=== PATIENT | male | born 1940 | race Caucasian/White ===

== ENCOUNTER 2019-04-15 10:47 | Emergency (ER) | payer MEDICARE ==
[~2019-04-15] VITALS: Ht 180.3 cm; Wt 87.1 kg
[2019-04-15 11:46] LABS: BASOPHILS ABSOLUTE AUTO 0.05 K/mm3 (0.00-0.23); BASOPHILS PERCENT AUTO 1 % (0-2); EOSINOPHILS PERCENT AUTO 2 % (0-6); Hematocrit 39.9 % (37.0-53.0); Hemoglobin 12.5 g/dL (13.5-17.5); IMMATURE GRAN ABSOLUTE AUTO 0.01 K/mm3 (0.00-0.10); IMMATURE GRAN PERCENT AUTO 0 % (0-1); LYMPHOCYTES ABSOLUTE AUTO 0.89 K/mm3 (0.84-5.20); LYMPHOCYTES PERCENT AUTO 15 % (21-46); MONOCYTES ABSOLUTE AUTO 0.74 K/mm3 (0.16-1.47); MONOCYTES PERCENT AUTO 12 % (4-13); Mean Corpuscular HGB 29.6 pg (26.0-34.0); Mean Corpuscular HGB Conc 31.3 g/dL (31.5-36.5); Mean Corpuscular Volume 95 fL (80-100); Mean Platelet Volume 8.9 fL (9.1-12.4); NEUTROPHILS ABSOLUTE AUTO 4.34 K/mm3 (1.96-9.15); NEUTROPHILS PERCENT AUTO 71 % (41-73); Platelet Count 281 K/mm3 (150-400); RDW Coefficient Variation 14.2 % (11.7-14.2); RDW Standard Deviation 48.9 fL (35.1-46.3); Red Blood Cell Count 4.22 M/mm3 (4.30-5.90); White Blood Cell Count 6.13 K/mm3 (4.00-11.30)
[2019-04-15 12:03] LABS: Alanine Aminotransfer (ALT/SGP 14 U/L (12-78); Albumin, Blood 3.2 g/dL (3.4-5.0); Albumin/Globulin Ratio 0.8 (0.8-1.8); Alk Phos 92 U/L (50-136); Anion Gap 7 mmol/L (6-16); Aspartate Aminotrans (AST/SGOT 15 U/L (12-37); Bilirubin, Total 0.4 mg/dL (0.1-1.0); Blood Urea Nitrogen 22 mg/dL (8-24); Bun/Creatinine Ratio 21.2 (12.0-20.0); CO2, Blood 24 mmol/L (21-32); Calcium, Blood 8.8 mg/dL (8.5-10.1); Chloride, Blood 108 mmol/L (98-108); Creatinine, Blood 1.04 mg/dL (0.60-1.20); Glomerular Filtration Rate >60 (60-); Glucose, Blood 111 mg/dL (70-99); Potassium, Blood 3.9 mmol/L (3.5-5.5); Sodium, Blood 139 mmol/L (136-145); Total Protein, Blood 7.2 g/dL (6.4-8.2); Troponin I 0.018 ng/mL (0.000-0.040)
[2019-04-15] MEDS ORDERED: TIOT18 INH (12:45)
[2019-04-15] MEDS ORDERED: Aspir 8181 MG PO (12:45)
[2019-04-15] MEDS ORDERED: Pravachol40 MG PO (12:46)
[2019-04-15] MEDS ORDERED: OMEPRAZOLE MAGN20 MG PO (12:46)
[2019-04-15] MEDS ORDERED: METO25 PO (12:46)
[2019-04-15] MEDS ORDERED: AZIT250 PO (13:07)
[2019-04-15] MEDS ORDERED: Prednisone20 MG PO (13:07)
== END 2019-04-15 13:55 | disposition home or self-care (01) ==
LOC: ER 10:47
PROVIDERS: Emergency Medicine
DX: J40 Bronchitis, not specified as acute or chronic (principal); Z79.899 Other long term (current) drug therapy; Z79.82 Long term (current) use of aspirin; I48.91 Unspecified atrial fibrillation; I25.2 Old myocardial infarction; Z86.73 Personal history of transient ischemic attack (TIA), and cerebral infarction without residual deficits
CPT/HCPCS: 71046; 80053; 83880; 84484; 85025; 93005; 93010

== ENCOUNTER 2019-07-15 14:28 | Emergency (ER) | payer MEDICARE ==
[~2019-07-15] VITALS: Ht 177.8 cm; Wt 80.7 kg
[~2019-07-15 14:28] MED LIST changes: -CEFP200 PO
[2019-07-15 15:12] LABS: BASOPHILS ABSOLUTE AUTO 0.04 K/mm3 (0.00-0.23); BASOPHILS PERCENT AUTO 0 % (0-2); EOSINOPHILS PERCENT AUTO 1 % (0-6); Hematocrit 36.9 % (37.0-53.0); Hemoglobin 11.4 g/dL (13.5-17.5); IMMATURE GRAN ABSOLUTE AUTO 0.04 K/mm3 (0.00-0.10); IMMATURE GRAN PERCENT AUTO 0 % (0-1); LYMPHOCYTES ABSOLUTE AUTO 0.79 K/mm3 (0.84-5.20); LYMPHOCYTES PERCENT AUTO 7 % (21-46); MONOCYTES PERCENT AUTO 8 % (4-13); Mean Corpuscular HGB 27.7 pg (26.0-34.0); Mean Corpuscular HGB Conc 30.9 g/dL (31.5-36.5); Mean Corpuscular Volume 90 fL (80-100); Mean Platelet Volume 8.6 fL (9.1-12.4); NEUTROPHILS ABSOLUTE AUTO 10.15 K/mm3 (1.96-9.15); NEUTROPHILS PERCENT AUTO 85 % (41-73); Platelet Count 360 K/mm3 (150-400); RDW Coefficient Variation 15.4 % (11.7-14.2); Red Blood Cell Count 4.11 M/mm3 (4.30-5.90); White Blood Cell Count 12.02 K/mm3 (4.00-11.30)
[2019-07-15 15:28] LABS: Alanine Aminotransfer (ALT/SGP 15 U/L (12-78); Albumin, Blood 3.2 g/dL (3.4-5.0); Albumin/Globulin Ratio 0.7 (0.8-1.8); Alk Phos 124 U/L (50-136); Anion Gap 8 mmol/L (6-16); Aspartate Aminotrans (AST/SGOT 13 U/L (12-37); Bilirubin, Total 0.6 mg/dL (0.1-1.0); Blood Urea Nitrogen 25 mg/dL (8-24); Bun/Creatinine Ratio 20.7 (12.0-20.0); CO2, Blood 23 mmol/L (21-32); Calcium, Blood 9.4 mg/dL (8.5-10.1); Chloride, Blood 110 mmol/L (98-108); Creatinine, Blood 1.21 mg/dL (0.60-1.20); Globulin, Blood 4.6 g/dL (2.2-4.0); Glomerular Filtration Rate >60 (60-); Glucose, Blood 117 mg/dL (70-99); Sodium, Blood 141 mmol/L (136-145); Total Protein, Blood 7.8 g/dL (6.4-8.2)
[2019-07-15 17:49] LABS: Source, Urine Clean Catch
[2019-07-15 17:56] LABS: Bilirubin, Urine Neg (Neg); Blood, Urine 5+ (Neg); Glucose Qualitative, Urine Neg (Neg); Ketones, Urine Neg (Neg); Leukocyte Esterase, Urine 2+ (Neg); Nitrite, Urine Neg (Neg); Protein, Urine 2+ (Neg); Specific Gravity, Urine 1.015 (1.003-1.022); Urobilinogen, Urine NORM (Normal)
[2019-07-15 18:04] LABS: Appearance, Urine Clear (Clear); Color, Urine Yellow (P-Yellow)
[2019-07-15 18:15] LABS: Bacteria Few /hpf; Squamous Epithelial Cells Not Seen /hpf (Few)
[2019-07-15] MEDS ORDERED: CEFP200 PO (18:33)
== END 2019-07-15 19:01 | disposition home or self-care (01) ==
LOC: ER 14:28
PROVIDERS: Physician Assistant
DX: N39.0 Urinary tract infection, site not specified (principal); R33.9 Retention of urine, unspecified; I48.91 Unspecified atrial fibrillation; I25.2 Old myocardial infarction; J44.9 Chronic obstructive pulmonary disease, unspecified; Z86.73 Personal history of transient ischemic attack (TIA), and cerebral infarction without residual deficits; Z79.82 Long term (current) use of aspirin; Z79.2 Long term (current) use of antibiotics; Z79.899 Other long term (current) drug therapy
CPT/HCPCS: 36415; 51702; 51798; 80053; 81001; 83690; 85025; 87086; 93005; 93010; 99284-25; A9270-GY

== ENCOUNTER → 2019-07-15 | Outpatient (CLI) | payer MEDICARE ==
[~2019-07-15] MED LIST: AZIT250 PO; Aspir 8181 MG PO; CEFP200 PO; METO25 PO; OMEPRAZOLE MAGN20 MG PO; Pravachol40 MG PO; Prednisone20 MG PO; TIOT18 INH
== END | disposition home or self-care (01) ==
LOC: LAB SHORT 15:06 → LAB SRC 15:06
PROVIDERS: Family Medicine
DX: N13.9 Obstructive and reflux uropathy, unspecified (principal)
CPT/HCPCS: 84153

== ENCOUNTER 2020-03-09 07:56 | Emergency (ER) | payer MEDICARE ==
[~2020-03-09] VITALS: Ht 177.8 cm; Wt 71.2 kg
[~2020-03-09 07:56] MED LIST changes: +CEFP200 PO
[2020-03-09 08:36] LABS: BASOPHILS ABSOLUTE AUTO 0.07 K/mm3 (0.00-0.23); BASOPHILS PERCENT AUTO 1 % (0-2); EOSINOPHILS PERCENT AUTO 0 % (0-6); Hematocrit 35.4 % (37.0-53.0); Hemoglobin 10.6 g/dL (13.5-17.5); IMMATURE GRAN ABSOLUTE AUTO 0.24 K/mm3 (0.00-0.10); IMMATURE GRAN PERCENT AUTO 2 % (0-1); LYMPHOCYTES ABSOLUTE AUTO 1.22 K/mm3 (0.84-5.20); LYMPHOCYTES PERCENT AUTO 9 % (21-46); MONOCYTES ABSOLUTE AUTO 0.53 K/mm3 (0.16-1.47); MONOCYTES PERCENT AUTO 4 % (4-13); Mean Corpuscular HGB 27.7 pg (26.0-34.0); Mean Corpuscular HGB Conc 29.9 g/dL (31.5-36.5); Mean Corpuscular Volume 92 fL (80-100); Mean Platelet Volume 9.6 fL (9.1-12.4); NEUTROPHILS ABSOLUTE AUTO 12.08 K/mm3 (1.96-9.15); NEUTROPHILS PERCENT AUTO 86 % (41-73); NRBC ABSOLUTE 0.02 K/mm3 (0.00-0.02); NRBC Auto 0.1 /100 WBC (0.0-0.2); Platelet Count 124 K/mm3 (150-400); RDW Coefficient Variation 26.3 % (11.7-14.2); RDW Standard Deviation 82.2 fL (35.1-46.3); Red Blood Cell Count 3.83 M/mm3 (4.30-5.90); White Blood Cell Count 14.14 K/mm3 (4.00-11.30)
[2020-03-09 08:53] LABS: Alanine Aminotransfer (ALT/SGP 108 U/L (12-78); Albumin, Blood 2.8 g/dL (3.4-5.0); Albumin/Globulin Ratio 0.9 (0.8-1.8); Alk Phos 204 U/L (50-136); Anion Gap 5 mmol/L (6-16); Aspartate Aminotrans (AST/SGOT 46 U/L (12-37); Bilirubin, Total 0.4 mg/dL (0.1-1.0); Blood Urea Nitrogen 31 mg/dL (8-24); Bun/Creatinine Ratio 43.1 (12.0-20.0); CO2, Blood 27 mmol/L (21-32); Calcium, Blood 8.5 mg/dL (8.5-10.1); Chloride, Blood 111 mmol/L (98-108); Creatinine, Blood 0.72 mg/dL (0.60-1.20); Globulin, Blood 3.1 g/dL (2.2-4.0); Glomerular Filtration Rate >60 (60-); Glucose, Blood 93 mg/dL (70-99); Potassium, Blood 4.4 mmol/L (3.5-5.5); Sodium, Blood 143 mmol/L (136-145); Total Protein, Blood 5.9 g/dL (6.4-8.2); Troponin I 0.021 ng/mL (0.000-0.040)
[2020-03-09] MEDS ORDERED: OXYB5 PO (10:12)
[2020-03-09] MEDS ORDERED: PRED20 PO (10:12)
[2020-03-09] MEDS ORDERED: TORSE20 PO (10:13)
[2020-03-09] MEDS ORDERED: POTA10T PO (10:13)
== END 2020-03-09 12:14 | disposition home or self-care (01) ==
LOC: ER 07:56
PROVIDERS: Physician Assistant
DX: R07.9 Chest pain, unspecified (principal); I48.91 Unspecified atrial fibrillation; I25.2 Old myocardial infarction; J44.9 Chronic obstructive pulmonary disease, unspecified; Z86.73 Personal history of transient ischemic attack (TIA), and cerebral infarction without residual deficits; Z95.5 Presence of coronary angioplasty implant and graft; Z79.82 Long term (current) use of aspirin; Z79.899 Other long term (current) drug therapy
CPT/HCPCS: 36415; 71045; 80053; 84484; 85025; 93005; 93010; 99285-25; A9270

== ENCOUNTER 2020-03-18 06:13 | Observation (INO) | payer MEDICARE ==
[~2020-03-18] VITALS: Ht 182.9 cm; Wt 54.6 kg
[~2020-03-18 06:13] MED LIST changes: +OXYB5 PO; +POTA10T PO; +PRED20 PO; +TORSE20 PO
[2020-03-18 06:33] LABS: Hematocrit 38.8 % (37.0-53.0); Mean Corpuscular HGB Conc 30.9 g/dL (31.5-36.5); Mean Corpuscular Volume 90 fL (80-100); NRBC ABSOLUTE 0.07 K/mm3 (0.00-0.02); NRBC Auto 1.1 /100 WBC (0.0-0.2); Platelet Count 238 K/mm3 (150-400); RDW Coefficient Variation 25.9 % (11.7-14.2); RDW Standard Deviation 82.7 fL (35.1-46.3); Red Blood Cell Count 4.29 M/mm3 (4.30-5.90); White Blood Cell Count 6.46 K/mm3 (4.00-11.30)
[2020-03-18 06:50] LABS: Alanine Aminotransfer (ALT/SGP 164 U/L (12-78); Albumin, Blood 3.1 g/dL (3.4-5.0); Albumin/Globulin Ratio 0.9 (0.8-1.8); Alk Phos 192 U/L (50-136); Anion Gap 15 mmol/L (6-16); Aspartate Aminotrans (AST/SGOT 111 U/L (12-37); Bilirubin, Total 0.9 mg/dL (0.1-1.0); Blood Urea Nitrogen 30 mg/dL (8-24); Bun/Creatinine Ratio 40.7 (12.0-20.0); CO2, Blood 19 mmol/L (21-32); Calcium, Blood 8.4 mg/dL (8.5-10.1); Chloride, Blood 104 mmol/L (98-108); Creatinine, Blood 0.74 mg/dL (0.60-1.20); Globulin, Blood 3.4 g/dL (2.2-4.0); Glomerular Filtration Rate >60 (60-); Glucose, Blood 165 mg/dL (70-99); Potassium, Blood 5.3 mmol/L (3.5-5.5); Sodium, Blood 138 mmol/L (136-145); Total Protein, Blood 6.5 g/dL (6.4-8.2); Troponin I 0.039 ng/mL (0.000-0.040)
[2020-03-18 07:13] LABS: BAND PERCENT MAN 3 % (0-8); BASOPHILS ABSOLUTE MAN 0.06 K/mm3 (0.00-0.23); BASOPHILS PERCENT MAN 1 % (0-2); EOSINOPHILS PERCENT MAN 0 % (0-6); LYMPHOCYTES ABSOLUTE MAN 0.25 K/mm3 (0.84-5.20); LYMPHOCYTES PERCENT MAN 4 % (21-46); MONOCYTES ABSOLUTE MAN 0.06 K/mm3 (0.16-1.47); MONOCYTES PERCENT MAN 1 % (4-13); MYELOCYTE ABSOLUTE MAN 0.06 K/mm3 (0.00-0.00); MYELOCYTE PERCENT MAN 1 % (0-0); SEG NEUTROPHILS PERCENT MAN 90 % (41-73); TOTAL CELLS COUNTED 100
[2020-03-18 07:34] LABS: Source, Urine Catheter
[2020-03-18 07:42] LABS: Bilirubin, Urine Neg (Neg); Blood, Urine 5+ (Neg); Glucose Qualitative, Urine Neg (Neg); Ketones, Urine Neg (Neg); Leukocyte Esterase, Urine 1+ (Neg); Nitrite, Urine Neg (Neg); Protein, Urine 2+ (Neg); Urobilinogen, Urine NORM (Normal)
[2020-03-18] MEDS ORDERED: Amoxicillin500 M1 PO (07:42)
[2020-03-18 07:50] LABS: Appearance, Urine Hazy (Clear); Color, Urine Yellow (P-Yellow)
[2020-03-18 07:51] LABS: Bacteria Rare /hpf; Squamous Epithelial Cells Few /hpf (Few)
[2020-03-18 08:03] LABS: Base Excess Venous -2.6 mmol/L; Bicarbonate Venous 22.5 mmol/L (24.0-30.0); PCO2 Venous 33.9 mmHg (38-42); pH Blood Venous 7.42 (7.34-7.37)
--- NOTE | 2020-03-18 11:50 | NUR ---
ASSUMED CARE FROM ER PT ARRIVED TO PCU AT APPROXIMATELY 1010 AND WAS ACCOMPANIED BY HIS SPOUSE, ISIDORO WHO IS ALSO HIS POA. PT WAS VERY LETHARGIC DUE TO SEIZURE AND WAS NOT AN ACCURATE HISTORIAN, SCREENING AND HISTORY WAS COMPLETED WITH THE SPOUSE. PT DENIES PAIN, SOB OR DISCOMFORT. 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 PT IS CURRENTLY RESTING IN BED AT THIS TIME
--- NOTE | 2020-03-18 18:17 | NUR ---
Pt resting in bed upon arrival. Pt's spouse at bedside. Pt denies pain and dyspnea at this time. Pt reports feeling better. Engaged in therapeutic discussion regarding advanced care planning. Discussed considering completing POLST. Pt and spouse express interest. Educated on life sustaining measures and each section to complete. Spouse will assist Pt in completing POLST after he finsishes his meal. Engaged in therapeutic listening as spouse Sophia reports family is spread out through different states and is just her and Pt. Pt reports cancer treatment he is receiving is palliative. Discussed the importance of planning for the future as cancer takes its coarse. Discussed the potential of Pt requiring assistance with care at some point during the disease process. Conversation took place about gathering family to assist with care in the future, paying out of pocket for care, or applying for medicaid through [employer]. Answered questions and discussed concerns. Continued therapeutic listening. Placed Social Service referral for list of community resources. Spoke with Bedside YOBANI Calzada and discussed case. Will F/U for supportive visits. Will obtain copy of POLST for medical records upon MD signature.
--- NOTE | 2020-03-18 18:46 | NUR ---
SHIFT SUMMARY PT ARRIVED TO PCU IN THE LATE MORNING WITH AT THE BEDSIDE TO PROVIDE HISTORY. PT WAS VERY LETHARGIC WHEN ARRIVING TO THE UNIT, PT HAS SINCE BEEN MORE ALERT AND AROUSABLE. PT WAS ABLE TO EAT DINNER AND PARTICIPATE IN PHYSICAL THERAPY. PT DENIES PAIN OR DISCOMFORT AND IS COOPERATIVE WITH CARE. BP HAS BEEN SOFT MAP HAS STAYED IN 60s CONSISTENTLY. OTHERWISE VS STABLE; PT ON RA. PT HAS BEEN REPOSITIONED FREQUENTLY AND HAD A LARGE BM THIS EVENING PT SLEEPING IN BED AT THIS TIME.
[2020-03-19 04:03] LABS: Anion Gap 7 mmol/L (6-16); Blood Urea Nitrogen 24 mg/dL (8-24); Bun/Creatinine Ratio 37.3 (12.0-20.0); CO2, Blood 24 mmol/L (21-32); Calcium, Blood 8.6 mg/dL (8.5-10.1); Chloride, Blood 106 mmol/L (98-108); Creatinine, Blood 0.64 mg/dL (0.60-1.20); Glomerular Filtration Rate >60 (60-); Glucose, Blood 96 mg/dL (70-99); Potassium, Blood 4.4 mmol/L (3.5-5.5); Sodium, Blood 137 mmol/L (136-145)
--- NOTE | 2020-03-19 04:28 | NUR ---
SHIFT SUMMARY PATIENT HAS BEEN ALERT AND ORIENTED TO SELF ONLY. SLOW TO RESPOND, FOLLOWS DIRECTIONS. SLEPT MOST THE NIGHT. REPOSITIONED Q2 HOURS. 02 SATS >95% ON RA. VSS, NO ACUTE CHANGES. BED ALARM ON, CALL LIGHT IN REACH.
[2020-03-19] MEDS ORDERED: ACET325 PO (09:36)
[2020-03-19] MEDS ORDERED: LEVE500 PO (09:37)
[2020-03-19] MEDS ORDERED: Cyproheptadine H4 MG PO (09:38)
--- NOTE | 2020-03-19 10:45 | NUR ---
ASSUMED CARE FROM NOC RN, MORNING UPDATE PT WAS ASLEEP DURING MORNING REPORT. PT SOON WOKE UP AND WAS REPOSITIONED AND SAT UP FOR MORNING MEDICATIONS AND BREAKFAST. PT WAS ABLE TO TELL ME THE YEAR AND TIME OF DAY WELL HIS LOCATION AND THE EVENT THAT BROUGHT HIM HERE. PT WAS ABLE TO WORK WITH OT THIS MORNING AND SIT UP IN THE CHAIR WITH THE ALARM IN PLACE. VS STABLE, BP SOFT BUT ACCORDING TO SPOUSE THIS IS HIS BASELINE, MAP OVER 70. PT ON RA AND WAS ABLE TO EAT ALL OF HIS BREAKFAST. IV FLUIDS DC'D THIS MORNING
--- NOTE | 2020-03-19 11:59 | NUR ---
DISCHARGE PT WAS ABLE TO WORK WITH OT/PT TODAY AND WAS CLEARED FOR DISCHARGE. PT IS ON RA, VS STABLE AND PT WAS ABLE TO TRANSFER TO WHEELCHAIR TO RETURN HOME WITH 1 PERSON ASSIST. PT WAS ACCOMPANIED OUT BY YOBANI DIEHL AND SPOUSE. YOBANI DIEHL REVIEWED DISCHARGE ORDERS WITH SPOUSE, ISIDORO PRIOR TO GOING HOME. PT WAS ESCORTED OFF OF THE FLOOR VIA WHEELCHAIR AT APPROXIMATELY 1130
== END 2020-03-19 11:34 | disposition home health service (06) ==
LOC: ER 06:13 → PCU 06:14
PROVIDERS: Emergency Medicine; Nurse Practitioner Acute Care; ADMIT Hospitalist
DX: R56.9 Unspecified convulsions (principal); C34.90 Malignant neoplasm of unspecified part of unspecified bronchus or lung; C78.7 Secondary malignant neoplasm of liver and intrahepatic bile duct; J44.9 Chronic obstructive pulmonary disease, unspecified; I48.20 Chronic atrial fibrillation, unspecified; R74.01 Elevation of levels of liver transaminase levels; G92 Toxic encephalopathy; N40.0 Benign prostatic hyperplasia without lower urinary tract symptoms; I25.10 Atherosclerotic heart disease of native coronary artery without angina pectoris; I25.2 Old myocardial infarction; K21.9 Gastro-esophageal reflux disease without esophagitis; E78.5 Hyperlipidemia, unspecified; Z86.73 Personal history of transient ischemic attack (TIA), and cerebral infarction without residual deficits; Z79.899 Other long term (current) drug therapy; Z79.82 Long term (current) use of aspirin; Z87.891 Personal history of nicotine dependence
CPT/HCPCS: 36415; 70450; 71045; 80048; 80053; 81001; 82803; 83735; 83880; 84484; 85025; 93005; 93010; 96365; 96372; 97162; 97165; 97530; 97535; 99285-25; A9270; G0378; J1650; J1953; J7120

== ENCOUNTER 2020-03-27 07:32 | Day surgery (SDC) | payer MEDICARE ==
[~2020-03-27] VITALS: Ht 177.8 cm; Wt 66.0 kg
[~2020-03-27 07:32] MED LIST changes: +ACET325 PO; +Amoxicillin500 M1 PO; +Cyproheptadine H4 MG PO; +LEVE500 PO
--- NOTE | 2020-03-27 08:43 | NUR ---
Ambulatory in Day Surgery History, Chart, Medications and Allergies reviewed before start of procedure. Lungs clear T/O to Auscultation. Patient confirms NPO status and agrees with scheduled surgery. DENTURES TO PACU.
--- NOTE | 2020-03-27 11:24 | NUR ---
Patient up to Ambulate STAND BY ASSIST. Discharge instructions reviewed with patient. Patient verbalizes understanding. Copy given to patient to take home. Discharged via wheelchair to private car for ride home WITH
== END 2020-03-27 23:45 | disposition home or self-care (01) ==
LOC: ORSCMMR 07:32 → ORD 09:00 → ORSCMMR 23:45
PROVIDERS: Surgery
PROC: 05HM33Z Insertion of Infusion Device into Right Internal Jugular Vein, Percutaneous Approach (ICD-10-PCS; principal; 2020-03-27 09:00)
PROC: B5131ZA Fluoroscopy of Right Jugular Veins using Low Osmolar Contrast, Guidance (ICD-10-PCS; principal; 2020-03-27 09:00)
DX: C34.31 Malignant neoplasm of lower lobe, right bronchus or lung (principal); C78.7 Secondary malignant neoplasm of liver and intrahepatic bile duct; I48.91 Unspecified atrial fibrillation; I25.2 Old myocardial infarction; I25.10 Atherosclerotic heart disease of native coronary artery without angina pectoris; K21.9 Gastro-esophageal reflux disease without esophagitis; Z86.73 Personal history of transient ischemic attack (TIA), and cerebral infarction without residual deficits; G40.909 Epilepsy, unspecified, not intractable, without status epilepticus; Z79.899 Other long term (current) drug therapy; Z79.82 Long term (current) use of aspirin
CPT/HCPCS: 77001; C1788; J0690; J1100; J1642; J2405; J2704; J3010; J7120

== ENCOUNTER 2020-04-08 11:35 | Observation (INO) | payer MEDICARE ==
[~2020-04-08] VITALS: Ht 177.8 cm; Wt 68.5 kg
--- NOTE | 2020-04-08 13:33 | NUR ---
ED Palliative Care Consult Spoke with Dr Manzo, discussed case and concerns. Pt has been receiving chemo for his cancer and according to staff at oncologist office, Pt has steady decline. CT schelduled next week to determine cancer response to chemo. Pt may benefit from discussion regarding goals of care. Pt is known to this entry writer from previous hospital stay. Pt resting on gurney upon arrival. Pt appears cachectic and frail. Pt also appears mildy dyspneic. Pt A&OX2/3. Pt unable to verbalize appropriate year and reason for ED visit. Pt's spouse Sophia present during visit. Engaged in therapeutic discussion regarding goals of care. Discussed hospice as an option. Offered therapeutic listening and answered questions. Pt and spouse reports plan for scheduled CT before making decision. [place] reports plan to travel to [place] in the near future. Continued therapeutic listening. Pt and spouse reports being in agreement of being admitted to hospital if recommended by MD. Pt and spouse agreeable for continued visits. Palliative Care will remain available.
[2020-04-08] MEDS ORDERED: ATOR40TA PO (14:19)
[2020-04-08] MEDS ORDERED: Pravachol40 MG PO (14:20)
[2020-04-08] MEDS ORDERED: TIOT18 INH (14:20)
[2020-04-08] MEDS ORDERED: OMEP20ER PO (14:20)
[2020-04-08] MEDS ORDERED: METOPROLOL TART25 MG PO (14:20)
[2020-04-08 14:37] LABS: Base Excess Venous -1.8 mmol/L; PCO2 Venous 38.1 mmHg (38-42); PO2 Venous 76.1 mmHg (38-42); pH Blood Venous 7.39 (7.34-7.37)
[2020-04-08 16:33] LABS: Source, Urine Clean Catch
[2020-04-08 16:36] LABS: Appearance, Urine Cloudy (Clear); Bilirubin, Urine Neg (Neg); Blood, Urine 5+ (Neg); Color, Urine Yellow (P-Yellow); Glucose Qualitative, Urine Neg (Neg); Ketones, Urine Neg (Neg); Leukocyte Esterase, Urine 3+ (Neg); Nitrite, Urine Pos (Neg); Protein, Urine 3+ (Neg); Urobilinogen, Urine 1+ (Normal)
[2020-04-08 16:46] LABS: Bacteria Many /hpf; Calcium Oxalate Crystals Few /hpf; Red Blood Cells, Urine 25-50 /hpf (0-2); Squamous Epithelial Cells Few /hpf (Few); White Blood Cells, Urine TNTC /hpf (0-5)
[2020-04-08 16:53] LABS: Influenza A, PCR NEGATIVE (NEGATIVE); Influenza B, PCR NEGATIVE (NEGATIVE); Resp Syncytial Virus, PCR NEGATIVE (NEGATIVE); SARS-Cov-2 (COVID-19) PCR, MMC NEGATIVE (NEGATIVE)
--- NOTE | 2020-04-08 18:41 | NUR ---
ADMISSION PT ARRIVED THIS EVENING FROM ED VIA GURNEY. PT IS ALERT AND ORIENTED X2. SPOUSE AT BEDSIDE. PT HAS A DRY COUGH AND IS ON ROOM AIR. BP STILL LOW. WILL CONTINUE TO MONITOR BP. PT EATING DINNER AT THIS TIME. CALL LIGHT IN REACH. WILL REPORT TO [facility].
[2020-04-08 21:44] LABS: Source, Urine Clean Catch
[2020-04-08 21:49] LABS: Appearance, Urine Turbid (Clear); Blood, Urine 5+ (Neg); Color, Urine Yellow (P-Yellow); Glucose Qualitative, Urine Neg (Neg); Ketones, Urine Neg (Neg); Leukocyte Esterase, Urine 3+ (Neg); Nitrite, Urine Pos (Neg); Protein, Urine 4+ (Neg); Urobilinogen, Urine 1+ (Normal)
[2020-04-08 22:50] LABS: Bilirubin, Urine 1+ (Neg)
[2020-04-08 22:51] LABS: Bacteria Many /hpf; Squamous Epithelial Cells Rare /hpf (Few); White Blood Cells, Urine TNTC /hpf (0-5)
[2020-04-08 22:52] LABS: Red Blood Cells, Urine 50-100 /hpf (0-2)
--- NOTE | 2020-04-09 04:24 | NUR ---
SHIFT SUMMARY ASSUMED CARE OF PT AT 1900. PT IS A/OX4. HEART SOUNDS REGULAR, LUNG SOUNDS ARE DIMINISHED. PT HAS CHRONIC CATH. CHANGED THIS SHIFT WITH [facility]A SENT. PT HAS MEDIPORT ACCESSED, FLUSHED WITH HEPRIN ONCE THIS SHIFT AFTER FLUIDS FINISHED. PT BP WAS LOW THIS SHIFT. HOSPITALIST NOTIFIED AND GAVE 1L NS. PT BP IS NOT 120 SYSTOLIC. PT SLEPT T/O THE NIGHT. CALL LIGHT IN REACH, BED IN LOWEST POSTION.
[2020-04-09 05:34] LABS: Hematocrit 22.8 % (37.0-53.0); Hemoglobin 7.3 g/dL (13.5-17.5); Mean Corpuscular Volume 91 fL (80-100); Mean Platelet Volume 10.9 fL (9.1-12.4); Platelet Count 71 K/mm3 (150-400); RDW Coefficient Variation 25.7 % (11.7-14.2); RDW Standard Deviation 82.8 fL (35.1-46.3); Red Blood Cell Count 2.52 M/mm3 (4.30-5.90)
[2020-04-09 05:52] LABS: Alanine Aminotransfer (ALT/SGP 193 U/L (12-78); Albumin, Blood 2.3 g/dL (3.4-5.0); Alk Phos 302 U/L (50-136); Anion Gap 7 mmol/L (6-16); Aspartate Aminotrans (AST/SGOT 117 U/L (12-37); Bilirubin, Total 1.2 mg/dL (0.1-1.0); Blood Urea Nitrogen 24 mg/dL (8-24); CO2, Blood 23 mmol/L (21-32); Calcium, Blood 7.5 mg/dL (8.5-10.1); Chloride, Blood 112 mmol/L (98-108); Creatinine, Blood 0.57 mg/dL (0.60-1.20); Globulin, Blood 2.2 g/dL (2.2-4.0); Glomerular Filtration Rate >60 (60-); Glucose, Blood 73 mg/dL (70-99); Magnesium, Blood 1.8 mg/dL (1.6-2.4); Potassium, Blood 3.7 mmol/L (3.5-5.5); Sodium, Blood 142 mmol/L (136-145); Total Protein, Blood 4.5 g/dL (6.4-8.2)
[2020-04-09 07:52] LABS: BAND PERCENT MAN 2 % (0-8); BASOPHILS PERCENT MAN 0 % (0-2); EOSINOPHILS ABSOLUTE MAN 0.01 K/mm3 (0.00-0.68); EOSINOPHILS PERCENT MAN 1 % (0-6); LYMPHOCYTES ABSOLUTE MAN 0.28 K/mm3 (0.84-5.20); LYMPHOCYTES PERCENT MAN 20 % (21-46); METAMYELOCYTE ABSOLUTE MAN 0.09 K/mm3 (0.00-0.00); METAMYELOCYTE PERCENT MAN 7 % (0-0); MONOCYTES ABSOLUTE MAN 0.04 K/mm3 (0.16-1.47); MONOCYTES PERCENT MAN 3 % (4-13); NEUTROPHILS ABSOLUTE MAN 0.96 K/mm3 (1.96-9.15); TOTAL CELLS COUNTED 100
[2020-04-09 07:53] LABS: SEG NEUTROPHILS PERCENT MAN 67 % (41-73)
--- NOTE | 2020-04-09 10:59 | NUR ---
Pt resting in bed upon arrival. Pt stating he is wanting to go home. Pt is requesting his spouse to visit. Discussed visiting hours. Pt appears mildly anxious. Confirmed wishes of wanting to focus on comfort and quality. Pt is agreeable with hospice. Spoke with Bedside YOBANI Rooney and discussed case. Spoke with Dr Brothers and discussed case. Plan for Pt to D/C home today, [facility] will send referral to hospice agency. Palliative Care will remain available.
--- NOTE | 2020-04-09 16:17 | NUR ---
DISCHARGE PT DISCHARGED TO HOME. THIS RN EXPLAINED DISCHARGE INSTRUCTIONS TO PT AND PT'S SPOUSE. THEY REPORT THEY UNDERSTAND. MEDIPORT WAS REMOVED WITHOUT DIFFICULTY AND HEPRIN WAS ADMINISTERED BEFORE REMOVAL. INFO FOR [facility] ([facility]) GIVEN TO SPOUSE. PT TRANSFERRED TO PRIVATE VEHICLE VIA WHEELCHAIR. PT'S BELONGINGS WITH PT AND PT'S SPOUSE.
--- NOTE | 2020-04-09 17:01 | NUR ---
Spiritual care note: Pt reports no sikh preference and pleasantly declines prayer. He responded well, though, to encouragement and theraputic listeing. He feels deeply loved by his family and is being discharged home to his and sons today. No concerns/fears presented.
== END 2020-04-09 15:33 | disposition home or self-care (01) ==
LOC: ER 11:35 → MEDS 11:36
PROVIDERS: Emergency Medicine; Nurse Practitioner Acute Care; ADMIT Hospitalist
DX: I95.9 Hypotension, unspecified (principal); E86.0 Dehydration; T45.1X5A Adverse effect of antineoplastic and immunosuppressive drugs, initial encounter; C34.31 Malignant neoplasm of lower lobe, right bronchus or lung; C77.9 Secondary and unspecified malignant neoplasm of lymph node, unspecified; C78.7 Secondary malignant neoplasm of liver and intrahepatic bile duct; D70.1 Agranulocytosis secondary to cancer chemotherapy; N40.0 Benign prostatic hyperplasia without lower urinary tract symptoms; I25.10 Atherosclerotic heart disease of native coronary artery without angina pectoris; J44.9 Chronic obstructive pulmonary disease, unspecified; E78.5 Hyperlipidemia, unspecified; D61.818 Other pancytopenia; I48.20 Chronic atrial fibrillation, unspecified; R74.01 Elevation of levels of liver transaminase levels; K21.9 Gastro-esophageal reflux disease without esophagitis; Z92.3 Personal history of irradiation; Z92.21 Personal history of antineoplastic chemotherapy; Z85.29 Personal history of malignant neoplasm of other respiratory and intrathoracic organs; Z86.73 Personal history of transient ischemic attack (TIA), and cerebral infarction without residual deficits; Z79.82 Long term (current) use of aspirin; Z95.5 Presence of coronary angioplasty implant and graft; Z87.891 Personal history of nicotine dependence
CPT/HCPCS: 0241U; 36415; 51702; 71045; 80053; 81001; 82140; 82330; 82803; 83605; 83735; 83880; 84145; 85025; 86140; 87040; 87077; 87086; 87186; 93005; 93010; 96361; 96365; 96367; 96375; 96376; 97116; 97162; 97165; 97530; 97535; 99285-25; A9270; G0378; J0456; J0696; J1642; J7030; J7050; J7120